=== PATIENT | female | born 1990 | race Caucasian/White ===

== ENCOUNTER 2024-08-17 06:45 | Emergency (ER) | payer OTHER ==
[~2024-08-17] VITALS: Ht 170.2 cm; Wt 73.0 kg
[2024-08-17 06:53] VITALS: O2SAT 99
[2024-08-17 07:24] VITALS: TEMP 36.7; O2SAT 100
[2024-08-17 08:38] VITALS: BP 129/72; PULSE 64; RESP 16
[2024-08-17] MEDS: METOCLOPRAMIDE HCL 10MG/2ML VIAL IM ONE (08:38)
[2024-08-17] MEDS: KETOROLAC 30MG/ML VIAL IM ONE (08:38)
== END 2024-08-17 08:26 | disposition left against medical advice (07) ==
LOC: ER 06:45
DX: G43.909 Migraine, unspecified, not intractable, without status migrainosus (principal); J45.909 Unspecified asthma, uncomplicated; Z98.890 Other specified postprocedural states
CPT/HCPCS: 99284; 96372; J1885; J2765